=== PATIENT | male | born 1995 | race Caucasian/White ===

== ENCOUNTER 2019-07-28 21:33 | Emergency (ER) | payer MEDICAID, SELFPAY ==
[2019-07-28 21:34] VITALS: BP 138/84; PULSE 73; RESP 16; TEMP 37.2; O2SAT 100; BMI 23.0
--- NOTE | 2019-07-28 22:08 | HMH.EDSKAF ---
ED Disposition Clinical Impression: IVDU (intravenous drug user) Abscess of skin or subcutaneous tissue Qualifiers: Site of cutaneous abscess: extremity Site of cutaneous abscess of extremity: upper extremity Laterality: left Qualified Code(s): L02.414 - Cutaneous abscess of left upper limb Disposition: Home, Self-Care Condition on Discharge: Good Instructions: DI for Skin Abscess Additional Instructions: use meds and call pcp for culture reports and consider drug rehab Prescriptions: Sulfamethoxazole/Trimethoprim [Bactrim DS tablet] 1 each PO BID #14 tab Prescription Printed cephALEXin [Keflex 500mg Cap] 500 mg PO TID #30 cap Prescription Printed Referrals: Provider,Referral, [Primary Care Provider] - - Critical Care Critical Care Time: No Attestation: On 07/28/19, the high probability of a clinically significant, sudden or life threatening deterioration of the following system(s) required my full and direct attention, intervention and personal management. The time I documented below is in addition to time spent performing reported procedures but includes the following listed in this critical care notation. Medical Decision Making - Medical Records Medical records reviewed: Yes: I reviewed the patient's medical records. - Herbert Inquiry Pt receiving controlled substance: No Vital Signs: 07/28/19 21:34 Temperature 98.9 F Temperature Source Oral Pulse Rate [Left Radial] 73 Respiratory Rate 16 Blood Pressure [Right Arm] 138/84 Blood Pressure Mean [Right Arm] 102 02 Sat by Pulse Oximetry 100 - Lab Data Lab results reviewed: Yes: I reviewed the patient's lab results. Lab Results 07/28/19 22:20: WBC 7.5, RBC 4.40 L, Hgb 11.6 L, Hct 34.1 L, MCV 77.4 L, MCH 26.4 L, MCHC 34.2, RDW 14.1, Plt Count 307, MPV 6.8 L, Neut % (Auto) 65.7, Lymph % (Auto) 26.5, [place] % (Auto) 3.6, Eos % (Auto) 3.4, Baso % (Auto) 0.7, Neut # (Auto) 5.0, Lymph # (Auto) 2.0, [place] # (Auto) 0.3, Eos # (Auto) 0.3, Baso # (Auto) 0.1, ESR 52 H 07/28/19 22:20: Sodium 142, Potassium 4.1, Chloride 101, Carbon Dioxide 31 H, Anion Gap 14.1, BUN 17, Creatinine 0.70, Estimated Creat Clear 176, Estimated GFR 137, Est GFR ( Amer) 166, Glucose 115 H, Calcium 10.0, Total Bilirubin 0.3, AST 33, ALT 13, Alkaline Phosphatase 131 H, C-Reactive Protein 43.0 H, Total Protein 9.2 H, Albumin 4.6, Globulin 4.6 H, Albumin/Globulin Ratio 1.0 L 07/28/19 22:20: Lactate 0.9 Result diagrams: 07/28/19 22:20 07/28/19 22:20 Orders (Tests/Meds): ED MEDICATIONS Generic Name Dose Route Start Last Admin Trade Name Freq PRN Reason Stop Dose Admin Sodium Chloride 1,000 mls @ 999 mls/hr 07/28/19 22:15 07/28/19 22:29 Sod Chlor 0.9% 1000ml Bag IV 07/28/19 23:15 999 mls/hr .Q1H1M MAUDE Administration Discontinued Medications Generic Name Dose Route Start Last Admin Trade Name Freq PRN Reason Stop Dose Admin Ceftriaxone Sodium 1 gm/ 50 mls @ 100 mls/hr 07/28/19 22:27 07/28/19 22:29 Sodium Chloride IV 07/28/19 22:56 100 mls/hr ONCE ONE Administration Protocol Ketorolac Tromethamine 30 mg 07/28/19 22:36 Toradol 30mg/Ml Vial IV 07/28/19 22:37 ONCE ONE Ondansetron HCl 4 mg 07/28/19 22:15 07/28/19 22:29 Zofran 4mg/2ml Vial IV 07/28/19 22:16 4 mg ONCE ONE Administration ORDERS Category Date Time Status Blood Culture Stat Micro 07/28/19 22:20 Received Wound Culture and Gram Stain Routine Micro 07/28/19 22:25 Received Skin/Abscess/FB HPI - General Chief complaint: Skin/Abscess/Foreign Body Stated complaint: Knot on left arm Time Seen by Provider: 07/28/19 21:50 Mode of Arrival: Ambulatory Source of Information: Patient, Medical Record Limitations: No Limitations Description of Symptoms (Recalled from ER Triage Doc. by RN): pt c/o a red hot abcess to his left forearm for the last 4 days. - History of Present Illness HPI narrative: abscess lt volar forearm - hx of ivdu - no fever or
[2019-07-28 22:34] VITALS: BP 127/71; PULSE 68; RESP 17; O2SAT 100
[2019-07-28 22:38] LABS: Basophils # 0.1 K/mm3 (0-0.2); Basophils % 0.7 % (0.1-2.0); Eosinophils # 0.3 K/mm3 (0.0-0.4); Eosinophils % 3.4 % (0.1-12.0); Hematocrit 34.1 % (42.0-52.0); Hemoglobin 11.6 g/dL (14.1-18.0); Lymphocytes % 26.5 % (10-50); Mean Corpuscular HGB Conc 34.2 g/dL (31.8-35.4); Mean Corpuscular Hemoglobin 26.4 pg (27.0-31.2); Mean Corpuscular Volume 77.4 fl (80-94); Mean Platelet Volume 6.8 fl (7.4-10.4); Monocytes # 0.3 K/mm3 (0.1-1.0); Monocytes % 3.6 % (1.7-9.3); Neutrophils % 65.7 % (37.0-80.0); Platelet Count 307 K/mm3 (142-424); Red Cell Distribution Width 14.1 % (11.5-17.5); White Blood Count 7.5 K/mm3 (4.8-10.8)
[2019-07-28 22:51] LABS: Anion Gap 14.1 mEq/L (5-15); Blood Urea Nitrogen 17 mg/dl (9-20); Carbon Dioxide 31 mmol/L (22.0-30.0); Chloride 101 mmol/L (98-107); Creatinine Clearance Estimated 176 mL/min (50-200); Estimated Glomerular Filt Rate 137 ml/min (>60); Potassium 4.1 mmoL/L (3.5-5.1); Sodium 142 mmol/L (136-145)
[2019-07-28 22:52] LABS: Alanine Aminotransferase 13 U/L (12-78); Albumin Level 4.6 g/dl (3.5-5.0); Alkaline Phosphatase 131 U/L (38-126); Aspartate Amino Transferase 33 U/L (17-59); Bilirubin,Total 0.3 mg/dl (0.2-1.3); GFR (African American) 166 ML/MIN (>60); Globulin 4.6 g/dL (1.3-3.2); Glucose 115 mg/dl (74-100); Lactic Acid 0.9 mmol/L (0.7-2.1); Total Protein,Serum 9.2 g/dl (6.3-8.2)
[2019-07-28 23:07] LABS: Erythrocyte Sedimentation Rate 52 mm/hr (0-15)
[2019-07-28 23:20] VITALS: BP 132/83; PULSE 76; RESP 16; TEMP 37.1; O2SAT 99
== END 2019-07-28 23:23 | disposition home or self-care (01) ==
PROVIDERS: Emergency Provider Emergency Medicine
DX: L02.414 Cutaneous abscess of left upper limb (principal); F17.210 Nicotine dependence, cigarettes, uncomplicated; F19.90 Other psychoactive substance use, unspecified, uncomplicated
CPT/HCPCS: 10060; 80053; 83605; 85025; 85651; 86140; 87040; 87070; 87077; 87186; 87205; 96365; 96367; 96375; 99284; J2405

== ENCOUNTER 2019-08-13 18:47 | Emergency (ER) | payer MEDICAID, SELFPAY ==
[2019-08-13 18:47] VITALS: BP 133/77; PULSE 85; RESP 18; TEMP 36.6; O2SAT 100; BMI 20.3
--- NOTE | 2019-08-13 18:52 | ECG_ITS ---
APPROVED REPORT Exam: Resting ECG HR:97 bpm ECG Measurements Heart Rate 97 AXES TX 144 P 55 QRSd 88 QRS 42 QT 348 T 64 QTc 441 <Conclusion> Normal sinus rhythm with sinus arrhythmia Normal ECG Electronically signed by : Harley Barcenas, 08/19/2019 17:16:32
--- NOTE | 2019-08-13 18:52 | XR_ITS ---
PROCEDURE: XR CHEST 2V CLINICAL HISTORY: RT RIB PAIN Right anterior lower rib pain with swelling, smoker COMPARISON: No exams were available for comparison FINDINGS: The cardiomediastinal silhouette and pulmonary vascularity are within normal limits. There are mild atelectatic or fibrotic changes in the right lower lung zone. The remaining lungs are clear. IMPRESSION: Atelectatic or fibrotic change on the right otherwise negative Dictated by: Leeroy King MD 08/14/2019 07:57 Electronically signed by Leeroy King MD in [place] 08/14/2019 07:57
--- NOTE | 2019-08-13 18:52 | PC.NURSE ---
NOTIFIED RAD OF XRAY
[2019-08-13 19:22] VITALS: BP 121/67; PULSE 81; RESP 18; O2SAT 100
--- NOTE | 2019-08-13 19:35 | HMH.EDGENADL ---
ED Disposition Clinical Impression: Costochondritis, acute Clinical Impression: (Ruled Out): IVDU (intravenous drug user) Disposition: Home, Self-Care Condition on Discharge: Good Instructions: DI for Acute Pain -- Adult Prescriptions: Nabumetone 750 mg PO BID 10 Days #20 tab Prescription Printed Referrals: Provider,Referral, [Primary Care Provider] - - Critical Care Critical Care Time: No Attestation: On 08/13/19, the high probability of a clinically significant, sudden or life threatening deterioration of the following system(s) required my full and direct attention, intervention and personal management. The time I documented below is in addition to time spent performing reported procedures but includes the following listed in this critical care notation. Medical Decision Making - Medical Records Medical records reviewed: Yes: I reviewed the patient's medical records. - Herbert Inquiry Pt receiving controlled substance: No Vital Signs: 08/13/19 18:47 08/13/19 19:22 Temperature 97.9 F Temperature Source Oral Pulse Rate [Right Radial] 85 81 Respiratory Rate 18 18 Blood Pressure [Right Arm] 133/77 121/67 Blood Pressure Mean [Right Arm] 95 85 Blood Pressure Source [Right Arm] Automatic Cuff Blood Pressure Position [Right Arm] Sitting 02 Sat by Pulse Oximetry 100 100 Oxygen Delivery Method Room Air Room Air - Lab Data Lab results reviewed: Yes: I reviewed the patient's lab results. Orders (Tests/Meds): ORDERS Category Date Time Status Chest XR 2 view (NOT portable) [XR chest 2V] Stat Exams 08/13/19 18:52 Taken General Adult HPI - General Chief complaint: PAIN Stated complaint: SIDE PAIN Time Seen by Provider: 08/13/19 19:20 Mode of Arrival: Ambulatory Source of Information: Patient Limitations: No Limitations Description of Symptoms (Recalled from ER Triage Doc. by RN): PT PRESENTS TO ED C/O RT SIDE RIB PAIN THAT WORSENS WITH INSPIRATION. PT DENIES CP - History of Present Illness Onset (ago): hour(s) Location: chest (Right-sided chest pain) Radiation: non-radiation Severity: moderate Severity scale (1-10): 4 Quality: stabbing Consistency: constant Relieving factors: none Exacerbating factors: none Associated symptoms: denies other symptoms - Related Data Previous Rx's Medication Instructions Recorded Sulfamethoxazole/Trimethoprim 1 each PO BID #14 tab 07/28/19 [Bactrim DS tablet] cephALEXin [Keflex 500mg Cap] 500 mg PO TID #30 cap 07/28/19 Nabumetone 750 mg PO BID 10 Days #20 tab 08/13/19 Allergies Allergy/AdvReac Type Severity Reaction Status Date / Time Penicillins [PENICILLINS] Allergy Unknown Verified 07/28/19 22:15 [facility] History - Hepatitis A Screen Drug use history?: No High risk sexual behaviors?: No History of sexually transmitted infection?: No Currently employed?: No Childcare worker?: No Do you have indoor plumbing?: Yes Do you have electricity?: Yes Attestation statement:: This patient has been screened for Hepatitis A risk factors. I have reviewed the patient's past medical history: Yes Medical History: Denies:: Diabetes Mellitus Type 1, Diabetes Mellitus Type 2 - Social History Smoking Status: Current every day smoker Tobacco Type: cigarettes # Packs/Day (cigarettes): 1 Alcohol Intake: never Substance Use Type: heroin Occupational Status: employed ROS Obtained: Yes All systems reviewed & no additional complaints - Constitutional Constitutional: Reports system reviewed and no additional complaints, except as docu - Eyes Eyes: Reports system reviewed and no additional complaints, except as docu - ENT Ears, Nose, Mouth, and Throat: Reports system reviewed and no additional complaints, except as docu - Cardiovascular Cardiovascular: Reports system reviewed and no additional complaints, except as docu - Respiratory Respiratory: Yes system reviewed and no additional complaints, except as docu - Gastrointesti
[2019-08-13 19:43] VITALS: BP 119/62; PULSE 79; RESP 17; TEMP 36.6; O2SAT 100
== END 2019-08-13 19:46 | disposition home or self-care (01) ==
PROVIDERS: Emergency Provider Family Medicine
DX: M94.0 Chondrocostal junction syndrome [Tietze] (principal); F17.210 Nicotine dependence, cigarettes, uncomplicated; F11.11 Opioid abuse, in remission
CPT/HCPCS: 71046; 93005; 99283

== ENCOUNTER 2019-08-30 17:48 | Emergency (ER) | payer MEDICAID, SELFPAY ==
[2019-08-30 17:57] VITALS: BP 137/74; PULSE 117; RESP 16; TEMP 37.4; O2SAT 98; BMI 20.9
[2019-08-30 18:09] VITALS: BP 137/74; PULSE 117; RESP 16; TEMP 37.4; O2SAT 98; BMI 20.9
--- NOTE | 2019-08-30 18:28 | HMH.EDUTC ---
[facility] [place] Clinical Impression: Abscess of right arm Disposition: Home, Self-Care Condition on Discharge: Good Instructions: Boil, DI for Skin Abscess Additional Instructions: Keep the wound clean and dry. Follow up with your regular doctor. Take the antibiotics as directed and apply the topical antibiotics as directed. Watch the site for worsening redness, drainage, swelling, etc and follow up accordingly. GO TO THE ER FOR ANY WORSENING SYMPTOMS Prescriptions: Sulfamethoxazole/Trimethoprim [Bactrim DS tablet] 1 each PO BID 10 Days #20 tab Transmission Status: Received by [facility] Mupirocin [Bactroban 2% Ointment 22gm tube] 1 applicatio TP TID 7 Days #1 tube Transmission Status: Received by [facility] cephALEXin [Keflex 500mg Cap] 500 mg PO Q6H 10 Days #40 cap Transmission Status: Received by [facility] Referrals: PCP,No [Primary Care Provider] - Forms: Work/School Release Time of Disposition: 18:54 Medical Decision Making - Medical Records Medical records reviewed: No: I reviewed the patient's medical records. - Herbert Inquiry Pt receiving controlled substance: No Vital Signs: 08/30/19 17:57 08/30/19 18:09 08/30/19 19:00 Temperature 99.3 F 99.3 F 99.3 F Temperature Source Oral Oral Pulse Rate 117 H Pulse Rate [Left] 117 H 117 H Respiratory Rate 16 16 16 Blood Pressure 137/74 Blood Pressure [Left Arm] 137/74 137/74 Blood Pressure Mean [Left Arm] 95 95 Blood Pressure Source [Left Arm] Automatic Cuff Blood Pressure Position [Left Arm] Sitting 02 Sat by Pulse Oximetry 98 98 Oxygen Delivery Method Room Air Room Air Orders (Tests/Meds): ORDERS Category Date Time Status Wound Culture and Gram Stain Stat Micro 08/30/19 19:06 Results [facility] [place] - General Stated complaint: Abscess on arm Time Seen by Provider: 08/30/19 18:28 Mode of Arrival: Ambulatory Source of Information: Patient Limitations: No Limitations Description of Symptoms (Recalled from Triage Doc. by RN): PATIENT C/O ABSCESS TO RIGHT UPPER ARM X 1 WEEK. HE STATES WITHIN THE PAST FEW DAYS IT HAS GOTTEN BIGGER. REDNESS, WARMTH AND SWELLING NOTED. DENIES FEVER HEENT Symptoms (Recalled from RN notes): No Resp Symptoms (Recalled from RN notes): No Skin Symptoms (Recalled from RN notes): Yes MS Symptoms (Recalled from RN notes): No Functional Status (Recalled from RN notes): WNL - History of Present Illness Provider Complaint: He states that he has had a red swollen area on his right upper arm for the past 3 days or so. He denies any known sting or bite. He denies any fever or chills. - Related Data Previous Rx's Medication Instructions Recorded Sulfamethoxazole/Trimethoprim 1 each PO BID #14 tab 07/28/19 [Bactrim DS tablet] cephALEXin [Keflex 500mg Cap] 500 mg PO TID #30 cap 07/28/19 Nabumetone 750 mg PO BID 10 Days #20 tab 08/13/19 Mupirocin [Bactroban 2% Ointment 1 applicatio TP TID 7 Days #1 tube 08/30/19 22gm tube] Sulfamethoxazole/Trimethoprim 1 each PO BID 10 Days #20 tab 08/30/19 [Bactrim DS tablet] cephALEXin [Keflex 500mg Cap] 500 mg PO Q6H 10 Days #40 cap 08/30/19 Allergies Allergy/AdvReac Type Severity Reaction Status Date / Time Penicillins [PENICILLINS] Allergy Unknown Verified 07/28/19 22:15 - Worker's Comp Is this a Worker's Comp case?: No [facility] History - Hepatitis A Screen Drug use history?: No High risk sexual behaviors?: No History of sexually transmitted infection?: No Currently employed?: No Childcare worker?: No Do you have indoor plumbing?: Yes Do you have electricity?: Yes Attestation statement:: This patient has been screened for Hepatitis A risk factors. I have reviewed the patient's past medical history: Yes Medical History: Denies:: Diabetes Mellitus Type 1, Diabetes Mellitus Type 2 - Social History Smoking Status: Current every day smoker Tobacco Type: cigarettes # Packs/Day (cigarettes):
[2019-08-30 19:00] VITALS: BP 137/74; PULSE 117; RESP 16; TEMP 37.4; O2SAT 98
== END 2019-08-30 19:05 | disposition home or self-care (01) ==
PROVIDERS: Emergency Provider Nurse Practitioner Family
DX: L02.413 Cutaneous abscess of right upper limb (principal); F17.210 Nicotine dependence, cigarettes, uncomplicated; Z88.0 Allergy status to penicillin
CPT/HCPCS: 10060; 87070; 87077; 87186; 87205; 99201

== ENCOUNTER 2020-08-19 12:38 | Emergency (ER) | payer MEDICAID, SELFPAY ==
[2020-08-19 12:52] VITALS: BP 127/72; PULSE 58; RESP 19; TEMP 36.8; O2SAT 98; BMI 21.2
--- NOTE | 2020-08-19 13:11 | HMH.EDUTC ---
[facility] [place] Disposition Clinical Impression: Sinusitis Qualifiers: Sinusitis location: unspecified location Chronicity: acute Recurrence: non-recurrent Qualified Code(s): J01.90 - Acute sinusitis, unspecified Disposition: Home, Self-Care Condition on Discharge: Good Instructions: DI for Sinusitis Additional Instructions: Drink plenty of fluids. Take tylenol or ibuprofen for pain or fever. Take the medications as directed. Follow up with your regular doctor. GO TO THE ER FOR ANY WORSENING SYMPTOMS Prescriptions: Brompheniramine/Pseudoephed/Dm [Bromfed Dm Cough Syrup] 5 ml PO Q6HP PRN #240 syrup PRN Reason: Cough Transmission Status: Received by [facility] Ondansetron [Zofran 4mg ODT] 4 mg PO Q8HP PRN #12 tab.rapdis PRN Reason: Nausea Transmission Status: Received by [facility] clindamycin HCL [Clindamycin HCl] 300 mg PO Q8H 10 Days #30 cap Transmission Status: Received by [facility] Referrals: Provider,Referral, [Primary Care Provider] - Forms: Work/School Release Time of Disposition: 13:30 Medical Decision Making - Medical Records Medical records reviewed: No: I reviewed the patient's medical records. - Herbert Inquiry Pt receiving controlled substance: No Vital Signs: 08/19/20 12:52 08/19/20 13:37 Temperature 98.2 F 98.2 F Temperature Source Oral Pulse Rate 58 L Pulse Rate [Right Radial] 58 L Respiratory Rate 19 19 Blood Pressure 127/72 Blood Pressure [Right Arm] 127/72 Blood Pressure Mean [Right Arm] 90 Blood Pressure Source [Right Arm] Automatic Cuff Blood Pressure Position [Right Arm] Sitting 02 Sat by Pulse Oximetry 98 Oxygen Delivery Method Room Air [facility] [place] HPI - General Stated complaint: runny nose, cough, weakness Time Seen by Provider: 08/19/20 13:11 Mode of Arrival: Ambulatory Source of Information: Patient Limitations: No Limitations Description of Symptoms (Recalled from Triage Doc. by RN): sinus pressure and dental pain HEENT Symptoms (Recalled from RN notes): Yes Resp Symptoms (Recalled from RN notes): No Skin Symptoms (Recalled from RN notes): No MS Symptoms (Recalled from RN notes): No Functional Status (Recalled from RN notes): , - History of Present Illness Provider Complaint: she c/o dental pain and sinus pressure for the past 3 days. She has a dental appt but its not until next week. - Related Data Previous Rx's Medication Instructions Recorded Sulfamethoxazole/Trimethoprim 1 each PO BID #14 tab 07/28/19 [Bactrim DS tablet] cephALEXin [Keflex 500mg Cap] 500 mg PO TID #30 cap 07/28/19 Nabumetone 750 mg PO BID 10 Days #20 tab 08/13/19 Mupirocin [Bactroban 2% Ointment 1 applicatio TP TID 7 Days #1 tube 08/30/19 22gm tube] Sulfamethoxazole/Trimethoprim 1 each PO BID 10 Days #20 tab 08/30/19 [Bactrim DS tablet] cephALEXin [Keflex 500mg Cap] 500 mg PO Q6H 10 Days #40 cap 08/30/19 Brompheniramine/Pseudoephed/Dm 5 ml PO Q6HP PRN #240 syrup 08/19/20 [Bromfed Dm Cough Syrup] Ondansetron [Zofran 4mg ODT] 4 mg PO Q8HP PRN #12 tab.rapdis 08/19/20 clindamycin HCL [Clindamycin HCl] 300 mg PO Q8H 10 Days #30 cap 08/19/20 Allergies Allergy/AdvReac Type Severity Reaction Status Date / Time Penicillins [PENICILLINS] Allergy Unknown Verified 07/28/19 22:15 - Worker's Comp Is this a Worker's Comp case?: No Is this an H Worker's Comp?: No Is this a [place] Worker's Comp?: No [facility] History - Hepatitis A Screen Drug use history?: No High risk sexual behaviors?: No History of sexually transmitted infection?: No Currently employed?: No Childcare worker?: No Do you have indoor plumbing?: No Do you have electricity?: No Attestation statement:: This patient has been screened for Hepatitis A risk factors. I have reviewed the patient's past medical history: Yes Medical History: Denies:: Cancer, Diabetes Mellitus Type 1, Diabetes Mellitus Type 2, Internal Pacemaker, MRSA Other Surgeries: No: Pacem
[2020-08-19 13:37] VITALS: BP 127/72; PULSE 58; RESP 19; TEMP 36.8; O2SAT 98
== END 2020-08-19 13:40 | disposition home or self-care (01) ==
PROVIDERS: Emergency Provider Nurse Practitioner Family
DX: J01.90 Acute sinusitis, unspecified (principal); Z88.0 Allergy status to penicillin

== ENCOUNTER 2022-06-04 15:13 | Emergency (ER) | payer OTHER, SELFPAY ==
[2022-06-04 15:15] VITALS: BP 114/55; PULSE 91; RESP 20; TEMP 36.9; O2SAT 100; BMI 24.5
--- NOTE | 2022-06-04 15:29 | EXP.UTC ---
Discharge Plan Disposition Patient Disposition: Home, Self-Care Condition: Good Prescriptions Prescriptions: New doxycycline hyclate [doxycycline hyclate] 100 mg capsule 100 mg PO Q12 10 Days Qty: 20 0RF No Action buprenorphine-naloxone 8-2 mg film 2 film SUBLINGUAL DAILY Referrals Follow up/Referrals: Cortney Acuna PA [Primary Care Provider] - See instructions Activity Restrictions/Add. Instructions Additional Instructions/Restrictions: Take ibuprofen for pain or fever. Rest for the next few days. Take the medications as directed. Follow up with your regular doctor in 24 to 48 hours for a recheck. GO TO THE ER FOR ANY WORSENING SYMPTOMS Clinical Impressions Clinical Impression: Lymphadenopathy, inguinal Instructions Patient Instructions: DI for Lymphadenopathy Discharge ED Provider: Hai Kwon [facility] General Stated complaint: knot on right lower side Time Seen by Provider: 06/04/22 15:29 History of Present Illness Provider Complaint: He states that for the past 2 days he has had multiple tender knots in his right groin region. He denies any known injury, but the knots did become tender after he was jumping on a trampoline with his children. He denies any history of hernias and he denies any bowel or bladder issues. He denies any known tick bites. He denies any swelling or tenderness in his neck, axillae or other groin. Related Data Home Medications Medication Instructions Recorded Confirmed buprenorphine 8 mg-naloxone 2 mg 2 film sublingual DAILY . 06/08/21 06/04/22 sublingual film Previous Rx's Medication Instructions Recorded doxycycline hyclate 100 mg capsule 100 mg PO Q12 10 days #20 caps 06/04/22 Allergies Allergy/AdvReac Type Severity Reaction Status Date / Time Penicillins [PENICILLINS] Allergy Unknown Verified 06/04/22 15:41 [facility] Disclaimer: The information contained in this section may have been updated after the patient was seen, as this information can be updated by other users. Medical History Allergic rhinitis Social History Smoking Status: Current every day smoker tobacco type: cigarettes packs per day: 1 second hand exposure: No alcohol intake: never substance use type: former substance user, marijuana and heroin current occupational status: employed Travel in the last 8 weeks: None housing: house current occupational exposures/hazards: No caffeine: Yes ROS Obtained: Yes All systems reviewed & no additional complaints except as documented Constitutional Constitutional: Denies chills and Denies fever(s) Eyes Eyes: Denies eye discharge ENT Ears, Nose, Mouth, and Throat: Denies dizziness, Denies otalgia and Denies sore throat Cardiovascular Cardiovascular: Denies chest pain Respiratory Respiratory: Denies shortness of breath, Denies chest congestion, Denies cough, Denies stridor and Denies wheezing Gastrointestinal Gastrointestingal: Denies nausea or vomiting Musculoskeletal Musculoskeletal: Reports as per HPI Integumentary/Breasts Skin/Breast: Denies rash Neurologic Neurologic: Denies dizziness and Denies paresthesias Hematologic/Lymphatic Henatologic/Lymphatic: Reports as per HPI, Denies easy bleeding, Denies easy bruising and Reports lymphadenopathy Allergic/Immunologic Allergic/Immunologic: Denies wheezing Physical Exam General General appearance: alert and in no apparent distress Head Head exam: atraumatic, normocephalic and normal inspection Eye Eye exam: Present normal appearance, PERRL and EOMI ENT ENT exam: Present normal exam, normal oropharynx, mucous membranes moist, TM's normal bilaterally and normal external ear exam Neck Neck exam: Present normal inspection, full ROM and trachea midline; Absent meningismus or lymphadenopathy Chest Chest inspection: Present normal inspecti
--- NOTE | 2022-06-04 15:30 | XR_ITS ---
PROCEDURE INFORMATION: Exam: XR Right Femur Exam date and time: 06/04/2022 3:30 PM Age: 26 years old Clinical indication: Pain; Hip; Right; Additional info: Upper right leg pain after jumping on a trampoline 4 days ago TECHNIQUE: Imaging protocol: Radiologic exam of the right femur. Views: 2 views. COMPARISON: No relevant prior studies available. FINDINGS: Bones/joints: Unremarkable. No acute fracture. Soft tissues: Unremarkable. IMPRESSION: No acute findings.
[2022-06-04 16:13] VITALS: BP 114/55; PULSE 91; RESP 20; TEMP 36.9; O2SAT 100
== END 2022-06-04 16:12 | disposition home or self-care (01) ==
PROVIDERS: Emergency Provider Nurse Practitioner Family; PCP Physician Assistant
DX: R59.0 Localized enlarged lymph nodes (principal); F17.210 Nicotine dependence, cigarettes, uncomplicated
CPT/HCPCS: 73552; 99212; 99214; G0463

== ENCOUNTER 2022-11-20 12:47 | Emergency (ER) | payer SELFPAY ==
[2022-11-20 12:48] VITALS: BP 156/87; PULSE 61; RESP 18; TEMP 36.8; O2SAT 99; BMI 23.7
--- NOTE | 2022-11-20 13:17 | EXP.UTC ---
Discharge Plan Disposition Patient Disposition: Home, Self-Care Condition: Good Prescriptions Prescriptions: New clindamycin HCl 300 mg capsule 300 mg PO Q8H Qty: 30 0RF ciprofloxacin HCl [Cipro] 500 mg tablet 500 mg PO BID 10 Days Qty: 20 0RF mupirocin 2 % ointment 1 applic topical TID 7 Days Qty: 15 0RF No Action buprenorphine-naloxone 8-2 mg film 2 film SUBLINGUAL DAILY Referrals Follow up/Referrals: Christian Acuna [Primary Care Provider] - See instructions Samara Johansen DPM [Staff Physician] - See instructions Activity Restrictions/Add. Instructions Additional Instructions/Restrictions: Rest the extremity, Elevate the extremity as tolerated while you are resting. Take tylenol or ibuprofen for pain. Follow up with Dr. Johansen (podiatry). I put in a referral but you need to call her office and schedule an appointment. Follow up with your regular doctor. GO TO THE ER FOR ANY WORSENING SYMPTOMS Soak your foot in warm espom salts water 2 or 3 times per day for the next week or so, unless you are told different by Dr. Johansen or you primary care doctor. Clinical Impressions Clinical Impression: Abscess of right foot, Cellulitis of right foot Discharge ED Provider: [facility] General Stated complaint: Right foot swollen,red with drainage,no injury Mode of Arrival: Ambulatory Source of Information: Patient Limitations: No Limitations Time Seen by Provider: 11/20/22 13:17 Description of Symptoms (Recalled from Triage Doc. by RN): right foot swollen. Pt has sores on side of right foot, heel, one on big toe, and under the toes. States that its hard to walk on. HEENT Symptoms (Recalled from RN notes): No Resp Symptoms (Recalled from RN notes): No Skin Symptoms (Recalled from RN notes): Yes MS Symptoms (Recalled from RN notes): No Functional Status (Recalled from RN notes): n/a History of Present Illness Provider Complaint: He states that for the past 5 days he has had swelling and redness of his right foot. He now has several wounds between his toes that are draining tannish drainage. He is not a known diabetic. Related Data Home Medications Medication Instructions Recorded Confirmed buprenorphine 8 mg-naloxone 2 mg 2 film sublingual DAILY . 06/08/21 11/20/22 sublingual film Previous Rx's Medication Instructions Recorded ciprofloxacin HCl 500 mg tablet 500 mg PO BID 10 days #20 tabs 11/20/22 (Cipro) clindamycin HCl 300 mg capsule 300 mg PO Q8H #30 caps 11/20/22 mupirocin 2 % topical ointment 1 applic topical TID 7 days #15 11/20/22 grams Allergies Allergy/AdvReac Type Severity Reaction Status Date / Time Penicillins [PENICILLINS] Allergy Unknown Verified 11/20/22 13:07 Worker's Comp Is this a Worker's Comp case?: No [facility] Disclaimer: The information contained in this section may have been updated after the patient was seen, as this information can be updated by other users. Medical History Allergic rhinitis Social History Smoking Status: Current every day smoker tobacco type: cigarettes packs per day: 1 second hand exposure: No alcohol intake: never substance use type: former substance user, marijuana and heroin current occupational status: employed Travel in the last 8 weeks: None housing: house current occupational exposures/hazards: No caffeine: Yes ROS Obtained: Yes All systems reviewed & no additional complaints except as documented Constitutional Constitutional: Denies chills and Denies fever(s) Eyes Eyes: Denies eye discharge ENT Ears, Nose, Mouth, and Throat: Denies dizziness, Denies otalgia and Denies sore throat Cardiovascular Cardiovascular: Denies chest pain Respiratory Respiratory: Denies shortness of breath, Denies chest congestion, Denies cough, Denies stridor and Denies wheezing Gastroint
[2022-11-20 13:31] LABS: Chloride 106 mmol/L (98-107); Sodium 139 mmol/L (136-145)
[2022-11-20 13:32] LABS: Potassium 4.3 mmoL/L (3.5-5.1)
[2022-11-20 13:34] LABS: Basophils % 0.5 % (0.1-2.0); Blood Urea Nitrogen 13 mg/dl (9-20); Creatinine Clearance Estimated 153 mL/min (50-200); Eosinophils # 0.1 K/mm3 (0.0-0.4); Eosinophils % 2.1 % (0.1-12.0); Estimated Glomerular Filt Rate 114 ml/min (>60); GFR (African American) 138 ML/MIN (>60); Hematocrit 44.2 % (42.0-52.0); Hemoglobin 15.1 g/dL (14.1-18.0); Lymphocytes # 1.6 K/mm3 (0.7-4.5); Lymphocytes % 23.4 % (10-50); Mean Corpuscular HGB Conc 34.1 g/dL (31.8-35.4); Mean Corpuscular Volume 85.1 fl (80-94); Mean Platelet Volume 7.7 fl (7.4-10.4); Monocytes # 0.4 K/mm3 (0.1-1.0); Monocytes % 6.1 % (1.7-9.3); Neutrophils # 4.6 K/mm3 (1.8-7.8); Neutrophils % 67.8 % (37.0-80.0); Platelet Count 289 K/mm3 (142-424); Red Cell Distribution Width 12.9 % (11.5-17.5); White Blood Count 6.8 K/mm3 (4.8-10.8)
[2022-11-20 13:35] LABS: Anion Gap 10.3 mEq/L (5-15); Calcium 8.9 mg/dl (8.4-10.2); Carbon Dioxide 27 mmol/L (22.0-30.0); Glucose 98 mg/dl (74-100)
[2022-11-20 13:49] VITALS: BP 156/87; PULSE 61; RESP 18; TEMP 36.8; O2SAT 99
== END 2022-11-20 13:49 | disposition home or self-care (01) ==
PROVIDERS: Emergency Provider Nurse Practitioner Family; PCP Internal Medicine
DX: L02.611 Cutaneous abscess of right foot (principal); L03.115 Cellulitis of right lower limb; F17.210 Nicotine dependence, cigarettes, uncomplicated; J30.9 Allergic rhinitis, unspecified
CPT/HCPCS: 80048; 85025; 87070; 87205; 99212; 99214; G0463

== ENCOUNTER 2023-11-24 17:31 | Emergency (ER) | payer SELFPAY ==
[2023-11-24 18:00] VITALS: BP 155/77; PULSE 101; RESP 20; TEMP 37.1; O2SAT 99; BMI 25.7
--- NOTE | 2023-11-24 18:11 | ED_ITS ---
Discharge Plan Disposition Patient Disposition: Home, Self-Care Condition: Good Prescriptions Prescriptions: New ibuprofen [IBU] 800 mg tablet 800 mg PO TIDP PRN (Reason: Moderate Pain) Qty: 20 0RF No Action buprenorphine-naloxone 8-2 mg film 2 film SUBLINGUAL DAILY Referrals Follow up/Referrals: Cortney Acuna PA [Primary Care Provider] - See instructions Gideon Vaca DO [Staff Physician] - See instructions (Call office and make appointment) Activity Restrictions/Add. 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 Be sure that is not to tight but not to loose either *Elevate when resting? *Ibuprofen 800mg every 8 hours as needed for pain an inflammation. If need something more can take Tylenol in between doses of Ibuprofen to help Immediately follow up with your family doctor for new or worsening of symptoms, or no noticeable improvement over the next 3-5 days Call Orthopedic office on Monday for appointment for further evaluation and treatment Clinical Impressions Clinical Impression: Effusion of knee joint Instructions Patient Instructions: DI for Back Pain With Sciatica, DI for Knee Effusion Print Language Print Language: Senegalese Discharge ED Provider: Kathy Hurtado [facility] General Stated complaint: swollen,painful right knee,lower left back pain Mode of Arrival: Ambulatory Source of Information: Patient Limitations: No Limitations Time Seen by Provider: 11/24/23 18:11 Description of Symptoms (Recalled from Triage Doc. by RN): PATIENT C/O SWELLING TO RIGHT KNEE SINCE MONDAY AND PAIN TO LEFT LOWER BACK SINCE MONDAY HEENT Symptoms (Recalled from RN notes): No Resp Symptoms (Recalled from RN notes): No Skin Symptoms (Recalled from RN notes): No MS Symptoms (Recalled from RN notes): Yes Functional Status (Recalled from RN notes): WNL History of Present Illness Provider Complaint: Patient states that he has been having pain and swelling in his right knee since Monday and has been limping on it a little and then on Mon he started having achy like pain in his left lower back that goes into his buttock area and left leg States he has a hx of sciatica and thinks the knee swelling and pain has caused it to flare up Related Data Home Medications ?Medication ?Instructions ?Recorded ?Confirmed buprenorphine 8 mg-naloxone 2 mg 2 film sublingual DAILY 06/08/21 11/24/23 sublingual film Previous Rx's ?Medication ?Instructions ?Recorded ibuprofen 800 mg tablet (IBU) 800 mg PO TIDP PRN Moderate Pain 11/24/23 #20 tabs Allergies Allergy/AdvReac Type Severity Reaction Status Date / Time Penicillins [PENICILLINS] Allergy Unknown Verified 11/20/22 13:07 Worker's Comp Is this a Worker's Comp case?: No [facility] Disclaimer: The information contained in this section may have been updated after the patient was seen, as this information can be updated by other users. Medical History Allergic rhinitis Social History Smoking Status: Current every day smoker tobacco type: cigarettes packs per day: 1 second hand exposure: No alcohol intake: never substance use type: former substance user, marijuana and heroin current occupational status: employed Travel in the last 8 weeks: None housing: house current occupational exposures/hazards: No caffeine: Yes ROS Obtained: Yes All systems reviewed & no additional complaints except as documented and Yes Systems reviewed as appropriate & no additional complaints except as documented Constitutional Constitutional: Reports system reviewed and no additional complaints, except as documented, Reports as per HPI, Denies body ache, Denies chills and Denies fever(s) ENT Ears, Nose, Mouth, and Throat: Reports system reviewed and no additional complaints, except as documented and Reports as per HPI Cardiovascular Cardiovascular: Reports system reviewed and no additional complaints, except as documented and Reports as per HPI Respiratory Respiratory: Reports system reviewed and no additional complaints, except as documented and Reports as per HPI Gastrointestinal Gastrointestingal: Reports system reviewed and no additional complaints, except as documented and as per HPI Musculoskeletal Musculoskeletal: Reports system reviewed and no additional complaints, except as documented, Reports as per HPI and Reports back pain (left lower back pain into buttock and left leg like he has had with sciatic) Comments: pain and swelling in right knee denies know injury Physical Exam General General appearance: alert and in no apparent distress ENT ENT exam: Present mucous membranes moist Respiratory Respiratory exam: Present normal lung sounds bilaterally; Absent respiratory distress or wheezes Cardiovascular Cardiovascular exam: Present regular rate, normal rhythm and normal heart sounds Expanded Lower Extremity Exam Right: Knee exam: Present tenderness, swelling, effusion and other (no warmth); Absent ecchymosis or erythema Lower leg exam: Present normal inspection Ankle exam: Present normal inspection Back Exam Back exam: Present tenderness and sciatic notch tenderness (L) Back 1 view image: 2 1. reports tenderness with palpation, feeling of spasm, left sciatic notch tenderness Denies loss of control of bowel or bladder Neurological Exam Neurological exam: Present alert, oriented X3 and normal gait Medical Decision Making Medical Records Screening: Per USPSTF and CDC recommendations, given the prevalence of disease in our region, it is our hospital?s policy to screen for HIV and viral Hepatitis for all patients aged 18 and over and those with ongoing risk factors. Herbert Inquiry Pt receiving controlled substance: No Herbert was queried for this patient: No Vital Signs: 11/24/23 18:00 Temperature 98.7 F Temperature Source Oral Pulse Rate [Left Brachial] 101 H Respiratory Rate 20 Blood Pressure [Left Arm] 155/77 H Blood Pressure Mean [Left Arm] 103 Blood Pressure Source [Left Arm] Automatic Cuff Blood Pressure Position [Left Arm] Sitting 02 Sat by Pulse Oximetry 99 Oxygen Delivery Method Room Air Radiology Data #1: Image(s): Knee Image Reviewed: Yes I have reviewed radiologist's interpretation
--- NOTE | 2023-11-24 18:11 | XR_ITS ---
PROCEDURE INFORMATION: Exam: XR Right Knee Exam date and time: 11/24/2023 6:46 PM Age: 28 years old Clinical indication: Swelling or effusion of joint; Knee TECHNIQUE: Imaging protocol: Radiologic exam of the right knee. Views: 3 views. Total images: 3 COMPARISON: CR XR FEMUR RT 2V 06/04/2022 3:30 PM FINDINGS: Bones/joints: No acute fracture or joint dislocation. At least moderate suprapatellar joint effusion. No concerning bone lesions or calcifications. Unremarkable joint spaces. Soft tissues: Unremarkable soft tissues. IMPRESSION: 1. No acute osseous abnormality. 2. At least moderate suprapatellar joint effusion.
[2023-11-24] MEDS: METHYLPREDNISOLONE SOD SUCC 125MG VIAL 125 MG IM (20:09)
[2023-11-24] MEDS: KETOROLAC 60MG/2ML VIAL 60 MG IM (20:09)
[2023-11-24 20:23] VITALS: BP 155/77; PULSE 101; RESP 20; TEMP 37.1; O2SAT 99
== END 2023-11-24 20:26 | disposition home or self-care (01) ==
PROVIDERS: Emergency Provider Nurse Practitioner; PCP Physician Assistant
DX: M25.461 Effusion, right knee (principal); M54.50 Low back pain, unspecified
CPT/HCPCS: 73562; 99213; G0381; J1885; J2919